=== PATIENT | female | born 1985 | race Caucasian/White ===

== ENCOUNTER 2017-04-19 23:17 | Emergency (ER) | payer OTHER ==
[2017-04-19 23:26] VITALS: RESP 18
--- NOTE | 2017-04-20 00:06 | EDPHY ---
H & P Stated Complaint: irreg HB tonight with a pause - Personal History LMP (Females 10-55): Now Current Tetanus Diphtheria and Acellular Pertussis (TDAP): Yes - Medical/Surgical History Hx Asthma: No Hx Chronic Respiratory Disease: No Hx Diabetes: No Hx Cardiac Disease: No Hx Renal Disease: No Hx Cirrhosis: No Hx Alcoholism: No Hx HIV/AIDS: No Hx Splenectomy or Spleen Trauma: No Other PMH: PVC, PAC's and Atrial runs. Kidney stones - Social History Smoking Status: Former smoker HPI/ROS: Chief complaint: Irregular heartbeat History of present illness: This is a 31-year-old female who presents to the emergency department for evaluation of a irregular heartbeat. Patient reports the onset of symptoms this evening. She describes an abnormal sensation in the chest. She further feels a coolness develop over her entire body. She does get dizzy with the symptoms. She has had similar problems for the last month and a half. She has been evaluated for her problem. She states part of her evaluation has included event monitoring and PACs and PVCs have been noted. She denies other associated signs or symptoms including no actual chest pain, no shortness of breath, no pain or swelling in the legs. Review of systems: A 10 point review of systems was obtained and other than described above was negative (Freeman Segundo) - Physical Exam Exam: General Appearance: Alert, nontoxic. Eyes: Pupils equal and round no pallor or injection. ENT, Mouth: Mucous membranes moist. Respiratory: There are no retractions, lungs are clear to auscultation. Cardiovascular: Regular rate and rhythm. No murmurs, rubs or gallops. Gastrointestinal: Abdomen is soft and non tender, no masses, bowel sounds normal. Neurological: Alert and oriented x4. Cranial nerves 2-12 grossly intact. Strength and sensation intact and symmetrical. Skin: Warm and dry, no rashes. Musculoskeletal: Neck is supple non tender. Extremities are symmetrical, full range of motion. Psychiatric: Patient is oriented X 3, there is no agitation. (Freeman Segundo) Constitutional: Initial Vital Signs Temperature (C) 36.7 C 04/19/17 23:22 Heart Rate 87 04/19/17 23:22 Respiratory Rate 18 04/19/17 23:22 Blood Pressure 128/90 H 04/19/17 23:22 O2 Sat (%) 99 04/19/17 23:22 O2 Delivery Mode Room Air Allergies/Adverse Reactions: No Known Allergies Allergy (Unverified 04/19/17 23:21) Home Medications: Medication Instructions Recorded NK [No Known Home Meds] 04/19/17 Medical Decision Making ED Course/Re-evaluation: Patient is discussed with my secondary supervising physician Dr. Benjamín Fox. Patient presents to the emergency department with palpitations, sensations of coolness and occasional dizziness. Symptoms have been going on for the last month and a half although they have worsened lately. On my evaluation she is nontoxic. She is afebrile and vital signs are stable. Physical exam is benign. Laboratory studies and EKG are unremarkable. Her construction trades contractor Dr. Desir did call and speak with Dr. Fox requested patient be admitted. I have offered the patient admission, she has declined. She will follow up in clinic for further evaluation and care. I discussed with her that if she changes her mind she can return to the emergency room for further evaluation and care and admission. I further discussed that if symptoms worsen or new symptoms develop return immediately to the emergency room for recheck. ( Freeman Segundo) I did not see or evaluated this patient. However, I agree with assessment and plan by Sanya OLIVER. I do understand patient was strongly encouraged to stay and be admitted in the hospital, on telemetry monitoring for Dr. Desir to evaluate as well. Tele monitoring. However patient refused admission and wanted to go home. IT was offered to her multiple times, however she has declined. She understands the risks of going home and obviously if she changes her mind she can return. Additionally, she was encouraged to stay, but declined. Dr. Desir updated as well. (Benjamín Fox) Differential Diagnosis: Included but not limited to cardiac dysrhythmias of multiple etiologies, electrolyte disturbances, endocrine disturbances, unlikely ACS and PE (Freeman Seugndo) - Data Points Laboratory Results: Laboratory Results 04/20/17 00:00 04/20/17 00:00 Departure - Departure Disposition: Home, Routine, Self-Care Clinical Impression: Palpitations Condition: Good Instructions: Palpitations (ED) Additional Instructions: Follow-up with Cardiology for continued evaluation and care If symptoms worsen or new symptoms develop return to the emergency room for recheck Referrals: PAMELA LERMA [Other] - As per Instructions Cesar Desir MD [Medical Doctor] - As per Instructions Stand Alone Forms: Work Excuse
[2017-04-20 00:08] LABS: % IMMATURE GRANULYOCYTES 0.3 % (0.0-1.1); ABSOLUTE IMMATURE GRANULOCYTES 0.03 10^3/uL (0.00-0.10); ADD DIFF? NO; ADD MORPH? NO; ADD SCAN? NO; ATYPICAL LYMPHOCYTE FLAG 10 (0-99); FRAGMENT RBC FLAG 0 (0-99); HEMATOCRIT 37.2 % (38.0-47.0); HEMOGLOBIN 12.6 g/dL (12.6-16.3); LEFT SHIFT FLG 0 (0-99); LIPEMIA HEMOLYSIS FLAG 90 (0-99); MEAN CELL HEMOGLOBIN 31.4 pg (27.9-34.1); MEAN CELL HEMOGLOBIN CONCENTR. 33.9 g/dL (32.4-36.7); MEAN CELL VOLUME 92.8 fL (81.5-99.8); MEAN PLATELET VOLUME 8.9 fL (8.7-11.7); PLATELET CLUMPS FLAG 0 (0-99); PLATELET COUNT 286 10^3/uL (150-400); RED BLOOD CELL COUNT 4.01 10^6/uL (4.18-5.33); RED CELL DISTRIBUTION WIDTH 11.8 % (11.5-15.2)
[2017-04-20 00:26] LABS: ANION GAP 12 mEq/L (8-16); CALCIUM 9.1 mg/dL (8.5-10.4); CARBON DIOXIDE 24 mEq/l (22-31); CHLORIDE 106 mEq/L (97-110); CREATININE 0.7 mg/dL (0.6-1.0); GLOMERULAR FILTRATION RATE > 60; GLUCOSE 100 mg/dL (70-100); MAGNESIUM 1.8 mg/dL (1.6-2.3); POTASSIUM 3.4 mEq/L (3.5-5.2); SODIUM 142 mEq/L (134-144)
[2017-04-20 00:37] LABS: TROPONIN I < 0.012 ng/mL (0.000-0.034)
[2017-04-20 01:53] VITALS: BP 105/68; PULSE 75; TEMP 97.7; O2SAT 97
--- NOTE | 2017-04-20 08:45 | CPEKG ---
Heart Rate: 86 RR Interval: 698 P-R Interval: 152 QRSD Interval: 82 QT Interval: 372 QTC Interval: 445 P [place]: -17 QRS [place]: 94 T Wave [place]: 33 EKG Severity - ABNORMAL ECG - EKG Impression: SINUS RHYTHM EKG Impression: PROBABLE RIGHT VENTRICULAR HYPERTROPHY Electronically Signed By: Benjamín Fox 21-Apr-2017 07:28:48
== END 2017-04-20 01:52 | disposition home or self-care (01) ==
DX: R00.2 Palpitations (principal); Z87.891 Personal history of nicotine dependence